=== PATIENT | male | born 1995 | race Caucasian/White ===

== ENCOUNTER 2020-02-14 14:01 | Emergency (ER) | payer OTHER, SELFPAY ==
--- NOTE | ~2020-02-14 | CT_ITS ---
EXAMINATION: CT brain wo con INDICATION: Transient alteration of awareness COMPARISON: None TECHNIQUE: Standard unenhanced head CT. The dose-length product (DLP) was 605.33 mGy-cm. The mA was a djusted according to patient size. Iterative reconstruction technique was employed. FINDINGS: There is no intracranial hemorrhage, acute infarction, or abnormal mass lesion. The ventric les are normal. There is no abnormal mass effect or midline shift. The werner-white matter differentiat ion is normal. The basal cisterns are patent. The orbits are normal. The paranasal sinuses, mastoids and calvarium are normal. IMPRESSION: 1. No acute intracranial abnormality. Reviewed, dictated and finalized at location A.
--- NOTE | ~2020-02-14 | XR_ITS ---
EXAMINATION: [id number] INDICATION: Right chest wall pain TECHNIQUE: A frontal view of the chest and 4 views of the right ribs were obtained. COMPARISON: None. FINDINGS: The lungs are free of acute opacities. There is no pleural effusion or pneumothorax. The ca rdiomediastinal silhouette is normal. The visualized bones and soft tissues are unremarkable. No disp laced rib fracture is identified. IMPRESSION: 1. No acute cardiopulmonary abnormality or evidence of displaced rib fracture. Reviewed, dictated and finalized at location A.
[2020-02-14 14:00] VITALS: BP 128/67; PULSE 70; RESP 21; O2SAT 100
--- NOTE | 2020-02-14 14:05 | ED.SYNCOPE ---
HPI - Syncope General Chief Complaint: Syncope Stated Complaint: syncopal episode Time Seen by Provider: 02/14/20 14:05 Source: patient and family (Friend) Mode of arrival: EMS Limitations: no limitations History of Present Illness HPI narrative: A 24 y/o male presents to the ED, via EMS, with c/o syncope. Pt states that he was at the gym doing bench press when he felt a pop in his right shoulder. He notes that the pain was a 9/10 in severity and he believes he may have torn a muscle in his right shoulder. The patient dropped the bar and his friend caught the bar and put it on the floor. The patient then sat up and blacked out. The patient's friend states that the patient passed out for 10 seconds but then awoke and was talking The patient then lost consciousness a second time for approximately 5 more seconds. He chipped his tooth, but is unsure how. Pt has a PMHx of HTN and takes Lisinopril daily. He drinks EtOH occasionally. MD complaint: loss of consciousness Onset (ago): hour(s) Duration of episode: 10 -: second(s) Witnessed: Yes - by Bystander Context: during exertion Injuries sustained associated with event: RUE (Shoulder) Current symptoms: other (Right arm injury) Related Data Home Medications Medication Instructions Recorded Confirmed lisinopril 20 mg PO DAILY 02/14/20 02/14/20 Allergies Allergy/AdvReac Type Severity Reaction Status Date / Time No Known Allergies Allergy Verified 02/14/20 14:11 Review of Systems Review of Systems: All systems reviewed & are unremarkable except as noted in HPI and below Musculoskeletal: Musculoskeletal: Reports other (Right arm injury) Neurologic: Reports other (LOC) PMFSH Past Medical History Medical History (Updated 02/14/20 @ 15:29 by Keron Granados MD) HTN (hypertension) Surgical History Surgical History (Updated 02/14/20 @ 14:11 by Celine Contreras) No pertinent past surgical history Social History Social History (Updated 02/14/20 @ 14:11 by Celine Contreras) Smoking status: Never smoker Alcohol intake: current Alcohol use details: Occasional Substance use: never Gender identity (if verbalized by the patient): Male Exam Narrative: Exam Narrative: General appearance: Well-developed, well-nourished Skin: Normal color Head: Normocephalic, nontraumatic Eyes: Clear conjunctiva ENT: Oropharynx normal, ears normal, nose normal, right upper incisor, fractured Neck: Supple, nontender Chest and respiratory: Airway patent, no respiratory distress, no accessory muscle use Heart: Regular rate/rhythm Abdomen: Soft, nontender, no organomegaly, quiet bowel sounds Vascular: Normal peripheral pulses, normal capillary refill. Musculoskeletal: Severe tenderness right chest with light palpation mainly with right shoulder abduction. No bruises, no swelling Neurologic: Alert and oriented ?3, SEATING UPHOLSTERER is normal as tested, no gross motor deficit Course Course Emergency Course: Stable Vital Signs Vital signs: Vital Signs Pulse Rate 70 02/14/20 14:00 Respiratory Rate 21 H 02/14/20 14:00 Blood Pressure 128/67 02/14/20 14:00 Pulse Oximetry 100 02/14/20 14:00 Pulse Rate 52 L 02/14/20 14:09 Respiratory Rate 21 H 02/14/20 14:00 Blood Pressure 128/67 02/14/20 14:00 Pulse Oximetry 100 02/14/20 14:00 MDM - Syncope MDM Narrative Medical decision making narrative: Strain chest wall muscle cause severe increase eating pain caused vasovagal and syncope. Is my concern. Labs, CT head, right ribs with chest x-ray ordered. Further plan to follow Differential Diagnosis Differential diagnosis: Likely other (Chest wall muscular strain, vasovagal syncope ) Lab Data Re
[2020-02-14 14:09] VITALS: PULSE 52
--- NOTE | 2020-02-14 14:12 | ECG_ITS ---
Measurements Intervals [place] Rate: 61 P: 18 RI: 165 QRS: 15 QRSD: 109 T: 44 QT: 405 QTc: 410 Interpretive Statements SINUS RHYTHM WITH SINUS ARRHYTHMIA NORMAL ECG Electronically Signed On 02-14-2020 17:33:04 CDT by Josef John D.O.
[2020-02-14] MEDS: KETOROLAC 30 MG/ML VIAL (*BKC) IV PUSH (14:39)
[2020-02-14 14:44] LABS: Basophils Percent Auto 0.4 % (0.2-1.2); Eosinophils Percent Auto 0.3 % (0-4.4); Hemoglobin 14.6 g/dL (14.0-18.0); Immature Granulocyte Absolute 0.05 K/mm3 (0.00-0.031); Immature Granulocyte Percent A 0.5 % (0-0.5); Lymphocytes Absolute Auto 1.27 K/mm3 (0.9-3.2); Lymphocytes Percent Auto 12.9 % (18.3-44.2); Mean Corpuscular HGB Conc 34.8 g/dl (32-36); Mean Corpuscular Hemoglobin 32.1 pg (26-34); Mean Corpuscular Volume 92.3 fl (80-100); Mean Platelet Volume 10.1 fl (7.4-10.4); Monocytes Absolute Auto 0.6 K/mm3 (0.1-0.6); Monocytes Percent Auto 6.3 % (2.6-8.5); Neutrophils Absolute Auto 7.8 K/mm3 (1.3-6.7); Neutrophils Percent Auto 79.6 % (45.5-73.1); Platelet Count Result 202 k/mm3 (150-375); Red Blood Count 4.55 M/mm3 (4.6-6.20); Red Cell Distribution Width 11.9 % (11.5-14.5); White Blood Count 9.8 K/mm3 (4.5-10.0)
[2020-02-14 14:54] LABS: Blood Urea Nitrogen 16 mg/dL (9-20); Calcium 9.1 mg/dL (8.4-10.2); Carbon Dioxide 27 mmol/L (22-30); Chloride 101 mmol/L (98-107); Estimated CRCL calculation 109 ml/min; Estimated Glomerular Filt Rate > 60; Glucose 110 mg/dL (75-110); Potassium 4.1 mmol/L (3.4-5.0); Sodium 137 mmol/L (137-145)
[2020-02-14 16:01] VITALS: BP 128/62; PULSE 68; RESP 16; O2SAT 100
[2020-02-14 16:40] VITALS: BP 128/64; PULSE 65; RESP 16; O2SAT 100
== END 2020-02-14 16:41 | disposition home or self-care (01) ==
LOC: ANHED 15:55
PROVIDERS: Emergency Provider Emergency Medicine
DX: R55 Syncope and collapse (principal); I10 Essential (primary) hypertension
CPT/HCPCS: 36415; 70450; 71101; 80048; 85025; 93005; 96374; 99284; J1885